=== PATIENT | male | born 1995 | race Caucasian/White ===

== ENCOUNTER 2018-05-26 19:54 | Emergency (ER) | payer BC ==
[2018-05-26 20:14] VITALS: BP 114/77; PULSE 78; RESP 20; TEMP 97.8; O2SAT 97
[2018-05-26] MEDS ORDERED: Lidocaine 1%/Epinephrine 1:100000 30 ml vial INJ ONE (20:43)
[2018-05-26] MEDS ORDERED: Amoxicillin-Clav 875-125 mg Tab PO STA (21:04)
[2018-05-26] MEDS ORDERED: Amoxicillin-Clav 875-125 mg Tab PO ONE (21:15)
[2018-05-26] MEDS ORDERED: Bacitracin 500 Units/gm Oint Foilpak UD TOP ONE (21:18)
[2018-05-26] MEDS ORDERED: Bacitracin 500 Units/gm Oint Foilpak UD ONE (21:21)
--- NOTE | 2018-05-26 21:21 | C.PDOC ---
History Of Present Illness 22 year old male presents to the ED for evaluation after he sustained an injury while playing basketball earlier today. Patient states someone's elbow struck his left cheek, resulting in a laceration. Patient denies loss of consciousness , nausea, vomiting, or any other injuries at this time. Time Seen by Provider: 05/26/18 20:36 Chief Complaint (Nursing): ENT Problem History Per: Patient History/Exam Limitations: no limitations Onset/Duration Of Symptoms: Hrs Current Symptoms Are (Timing): Still Present Additional History Per: Patient Past Medical History Reviewed: Historical Data, Nursing Documentation, Vital Signs Vital Signs: Last Vital Signs Temp 97.8 F 05/26/18 20:11 Pulse 78 05/26/18 20:11 Resp 20 05/26/18 20:11 BP 114/77 05/26/18 20:11 Pulse Ox 97 05/26/18 22:25 - Medical History PMH: No Chronic Diseases Surgical History: No Surg Hx Family History: States: Unknown Family Hx - Social History Hx Alcohol Use: Yes Hx Substance Use: No - Immunization History Hx Tetanus Toxoid Vaccination: Yes Hx Influenza Vaccination: No Hx Pneumococcal Vaccination: No Review Of Systems Skin: Positive for: Other (laceration to left cheek ) Physical Exam - Physical Exam Appears: Non-toxic, No Acute Distress Skin: Normal Color, Warm, Dry Head: Atraumatic, Normacephalic Eye(s): bilateral: Normal Inspection, EOMI Nose: Normal, No Epistaxis, No Deformity, No Tenderness Oral Mucosa: Moist Tongue: Normal Appearing, No Bite, No Laceration Teeth: Normal Dentition, No Caries, No Dentures, No Loose, No Avulsed 1 - 2cm, wedge-shaped laceration to left buccal mucosa and inner mouth; punctate laceration to left cheek with mild active bleeding Neck: Normal ROM, Supple Chest: Symmetrical, No Deformity, No Tenderness Cardiovascular: Rhythm Regular Respiratory: Normal Breath Sounds Extremity: Normal ROM, No Tenderness, No Deformity, No Swelling Neurological/Psych: Oriented x3, Normal Speech Gait: Steady ED Course And Treatment O2 Sat by Pulse Oximetry: 97 (on RA) Pulse Ox Interpretation: Normal Laceration - Laceration Repair mouth Wound Length (In cm): 2 Description Of Wound: Linear Wound Cleansed With: Sterile Saline Anesthesia: Lidocaine 1%, With Epi Wound Examination: Irrigated With Saline, No FB With Wound Exploration Wound Closure: Suture Suture Technique And Material Used: Running, Vicryl (4-0) Wound Complexity: Simple Medical Decision Making Medical Decision Making: Impression: 22 year old male with cheek laceration Plan: * Augmentin PO * Bacitracin TOP Progress: Augmentin PO and Bacitracin TOP administered. On re-exam, patient is resting comfortably, showing no signs of distress and is stable for discharge. Patient is advised on wound care and given prescription for antibiotics. Advised to return to the ED if symptoms persist or worsen. Disposition Counseled Patient/Family Regarding: Diagnosis, Need For Followup, Rx Given - Disposition Referrals: Harry Sylvester MD [Staff Provider] - Disposition: HOME/ ROUTINE Disposition Time: 21:18 Condition: GOOD Additional Instructions: Your wound was closed with absorbable sutures and you do not need to return for suture removal Apply bacitracin to outer wound and change dressing daily Take antibiotic twice a day for one week Prescriptions: Amoxicillin/Clavulanate [Augmentin 875 MG-125 MG] 1 tab PO BID #[id number] tab Instructions: Laceration Repair With Stitches (DC) Forms: [facility] ([place]) - POA Present On Arrival: None - Clinical Impression Clinical Impression: Laceration of mouth, internal - PA / [employer] / Resident Statement MD/DO has reviewed & agrees with the documentation as recorded. - Scribe Statement The provider has reviewed the documentation as recorded by the Scribe (Lucy Mcdermott) All medical record entries made by the Scribe were at my direction and personally dictated by me. I have reviewed the chart and agree that the record accurately reflects my personal performance of the history, physical exam, medical decision making, and the department course for this patient. I have also personally directed, reviewed, and agree with the discharge instructions and disposition.
[2018-05-26] MEDS ORDERED: Amoxicillin-Clav 250-62.5 mg/5 ml Susp (75 ml) ONE (21:26)
[2018-05-26] MEDS ORDERED: Amoxicillin-Clav 250-62.5 mg/5 ml Susp (75 ml) PO STA (21:27)
== END 2018-05-26 21:33 | disposition home or self-care (01) ==
LOC: C.ER 19:54
DX: S01.512A Laceration without foreign body of oral cavity, initial encounter (principal); W50.0XXA Accidental hit or strike by another person, initial encounter; Y93.67 Activity, basketball; Y92.39 Other specified sports and athletic area as the place of occurrence of the external cause